=== PATIENT | female | born 1945 | race Caucasian/White ===

== ENCOUNTER 2018-11-11 09:04 | Day surgery (SDC) | payer OTHER ==
[~2018-11-11] VITALS: Ht 152.4 cm; Wt 53.3 kg
--- NOTE | 2018-11-11 10:22 | PREAC ---
Date/Time of Note Date/Time of Note DATE: 11/11/18 TIME: 10:21 Anesthesia Eval and Record Evaluation Time Pre-Procedure Interview DATE: 11/11/18 TIME: 10:21 Age 73 Sex female NPO: 8 hrs Preoperative diagnosis hematochesia, REFLUX Planned procedure EGD colonoscopy Past Medical History Past Medical History: Includes Cardio: HTN Endo: Hypothyroid GI: GERD Surgery & Anesthesia Issues No known issue Meds Anticoagulation: No Beta Jenna within 24 hr: Yes Meds reviewed: Yes Allergies Allergies Reviewed: Yes Labs/Studies Labs Reviewed: Reviewed by anesthesiologist test: N/A Studies: ECG (n/a), CXR (n/a) Pre-procedure Exam Airway: Adequate mouth opening Mallampati: Mallampati I Teeth: Abnormal (denture) Lung: Normal Heart: Normal ASA Physical Status ASA physical status: 2 Emergency: None Planned Anesthetic General/MAC: MAC Planned Pain Management Parenteral pain med Pre-operative Attestations Prior to commencing anesthesia and surgery, the patient was re-evaluated, there was verification of: *The patient's identity *The results of appropriate recent lab work and preoperative vital signs *The above evaluation not changing prior to induction *Anesthetic plan, risk benefits, alternative and complications discussed with patient/family; questions answered; patient/family understands, accepts and wishes to proceed. ROBIN AVITIA MD Nov 11, 2018 10:22
[2018-11-11] MEDS ORDERED: ANXIETY MED (10:23)
[2018-11-11] MEDS ORDERED: PAXIL (10:23)
[2018-11-11] MEDS ORDERED: ATENOLOL (10:23)
[2018-11-11] MEDS ORDERED: SYNTHROID (10:23)
[2018-11-11] MEDS ORDERED: OSTEOPOROSIS MED (10:23)
[2018-11-11] MEDS ORDERED: PROPOFOL 20 ML ONE (10:25)
[2018-11-11] MEDS ORDERED: FENTAnyl 50 MCG/ML VIAL ONE (10:25)
[2018-11-11 10:27] VITALS: BP 166/81; PULSE 75; RESP 12
[2018-11-11] MEDS ORDERED: ONDANSETRON 4 MG INJ IV PRN (10:30)
[2018-11-11 11:38] VITALS: BP 151/72; PULSE 62; RESP 16
--- NOTE | 2018-11-11 13:12 | PAC ---
Date/Time of Note Date/Time of Note DATE: 11/11/18 TIME: 13:12 Post-Anesthesia Notes Post-Anesthesia Note Last documented vital signs Vital Signs Date Temp Pulse Resp B/P (MAP) Pulse Ox O2 O2 Flow FiO2 Time Delivery Rate 11/11/18 98.2 62 16 151/72 100 Room Air 11:38 (98) 11/11/18 98.5 10:27 Activity: WNL Respiratory function: WNL Cardiovascular function: WNL Mental status: Baseline Pain reasonably controlled: Yes Hydration appropriate: Yes Nausea/Vomiting absent: No ROBIN AVITIA MD Nov 11, 2018 13:12
== END 2018-11-11 14:29 | disposition home or self-care (01) ==
LOC: GIL 09:04
PROVIDERS: ATTEND Internal Medicine Gastroenterology
DX: R19.5 Other fecal abnormalities (principal); K57.30 Diverticulosis of large intestine without perforation or abscess without bleeding; K64.8 Other hemorrhoids; K20.8 Other esophagitis
CPT/HCPCS: 43235; 45378; J3010; 88305; 88312